=== PATIENT | female | born 1995 | race Caucasian/White ===

== ENCOUNTER 2024-12-12 17:03 | Emergency (ER) | payer SELFPAY ==
[~2024-12-12 17:03] MED LIST: Iopamidol-370 76% 500 ML MDV (1 ML CHARGE) ONE
[2024-12-12] MEDS ORDERED: Ondansetron PF 4 MG/2 ML Vial ONE (19:05)
[2024-12-12] MEDS ORDERED: Pantoprazole 40 MG VIAL ONE (19:07)
[2024-12-12 19:14] LABS: Bacteria/HPF None Seen HPF (None Seen); CAUTI Indications for Culture Pelvic or flank pain; Glucose, Urine (Dipstick) Normal (Negative); Leukocyte Negative Leu/uL (Negative); Protein, Urine (Dipstick) Negative (Neg-Trace); RBC/HPF None Seen HPF (0-3); Specific Gravity, Urine 1.002 (1.002-1.036); WBC/HPF 0-3 HPF (0-3)
[2024-12-12 19:14] LABS: #Basophils Less than 0.03 10x3/uL (0.0-0.2); #Eosinophils 0.09 10x3/uL (0.0-0.7); #Monocytes 0.57 10x3/uL (0.11-0.59); #Neutrophils 6.10 10x3/uL (1.40-6.50); %Basophils 0.1 % (0.0-1.0); %Eosinophils 0.9 % (0.0-10.0); %Lymphocytes 31.6 % (21.0-51.0); %Monocytes 5.7 % (0.0-10.0); %Neutrophils 61.5 % (42.0-75.0); Hematocrit 39.0 % (36.0-47.0); Hemoglobin 11.9 g/dL (12.0-16.0); Mean Corpuscular Hemoglobin 24.6 pg (27.0-31.0); Mean Corpuscular Volume 80.6 fL (78.0-98.0); Platelet Count 191 10x3/uL (130-400); Red Blood Cell (RBC) Count 4.84 mill/uL (4.20-5.40); White Blood Cell (WBC) Count 9.93 10x3/uL (4.8-10.8)
[2024-12-12 19:25] LABS: Urine Culture Reflex No No
[2024-12-12 19:27] LABS: BHCG - Serum Negative (NEGATIVE); Pregs Control Background? CLEAR/WHITE (CLR/WHITE); Pregs Control Bar Appear? YES (CONTROL BAR)
[2024-12-12 19:37] LABS: ALT (SGPT) 17 U/L (Less than 34); AST (SGOT) 17 U/L (11-34); Albumin 4.3 g/dL (3.1-4.5); Alkaline Phosphatase 63 U/L (40-110); Anion Gap 10 mmol/L (10-20); BUN (Urea Nitrogen) 7 mg/dL (7.0-18.7); Bilirubin, Total 0.2 mg/dL (0.3-1.2); Calc. Creatinine Clearance 0 mL/min (70-130); Calcium 9.1 mg/dL (7.8-10.44); Carbon Dioxide 27 mmol/L (22-29); Chloride 106 mmol/L (98-107); Globulin 2.9 g/dL (2.4-3.5); Glucose 97 mg/dL (70-105); Lipase 20 U/L (8-78); Potassium 3.9 mmol/L (3.5-5.1); Sodium 139 mmol/L (136-145)
== END 2024-12-12 21:25 | disposition home or self-care (01) ==
LOC: ERS 17:03
DX: R10.9 Unspecified abdominal pain (principal); F17.210 Nicotine dependence, cigarettes, uncomplicated
CPT/HCPCS: 74177; 76705; 80053; 81001; 83690; 84703; 85025; 96374; 96375; 96376; J2270; J2405; J2470; Q9967

== ENCOUNTER 2025-01-16 16:21 | Emergency (ER) | payer SELFPAY ==
[2025-01-16] MEDS ORDERED: Amoxicillin/Potassium Clav 875 MG TAB ONE (17:37)
== END 2025-01-16 18:16 | disposition home or self-care (01) ==
LOC: ERS 16:21
DX: S20.211A Contusion of right front wall of thorax, initial encounter (principal); S00.83XA Contusion of other part of head, initial encounter; K04.7 Periapical abscess without sinus; F17.210 Nicotine dependence, cigarettes, uncomplicated; W01.0XXA Fall on same level from slipping, tripping and stumbling without subsequent striking against object, initial encounter; Y93.01 Activity, walking, marching and hiking; Y99.0 Civilian activity done for income or pay
CPT/HCPCS: 70150; 96372; 99283